=== PATIENT | male | born 1960 | race Caucasian/White ===

== ENCOUNTER 2018-07-20 14:53 | Outpatient (CLI) | payer OTHER, SELFPAY ==
--- NOTE | 2018-07-20 14:26 | DI.RAD_ITS ---
SYMPTOMS/DIAGNOSIS: INVERSION INJURY RIGHT ANKLE: There is no evidence of a fracture or dislocation.
== END 2018-07-20 15:13 ==
PROVIDERS: PCP Family Medicine; Visit Provider Family Medicine
DX: S93.401A Sprain of unspecified ligament of right ankle, initial encounter (principal)
CPT/HCPCS: 73610